=== PATIENT | female | born 1995 | race Caucasian/White ===

== ENCOUNTER 2020-08-21 10:00 | Outpatient (RCR) | payer OTHER, MEDICARE, SELFPAY ==
[2020-08-21 12:31] VITALS: BMI 28.3
--- NOTE | 2020-08-21 12:53 | PC.ADMIT ---
Patient self referred to the PHP program d/t increase in depression with passive SI and severe anxiety. Reports panic attacks 3 times a week and feels triggered by everything. Per [facility] assessment patient was hospitalized in February 2020 and had a medication wash . Patient reports hx of attending other [facility] programs and reports not having a good experience. Patient reports break up with boyfriend contributing to her symptoms. Patient presents with depressed mood and affect. Reports passive Si, no plan or intent. Gave verbal permission to email her a copy of her safety plan. Asked patient if feeling unsafe who could she contact and she stated her mom whom she lives with or her friends. Patient has the crisis number if needed. Medications reconciled with patient and patient's pharmacy. Unclear why she was prescribed Vitamin B1 and Folic Acid, pt reports she has not been taking this medication.
--- NOTE | 2020-08-21 12:56 | PC.NURSE ---
Patient emailed staff stating she is struggling and needs to withdraw from the program. I called patient to f/u. Patient stated while in group she started getting flashbacks from anouther [facility] program she was in and felt overwhelmed. She stated nothing happened in the program groups however it is reminding her of the bad experience she had at another [facility]. Patient reports she is safe, no plan or intent to kill herself. Reports her mother is home and she let her mother know she will not be continuing the program. Patient also reports she reached out to her therapist to let her know and will be seeing her therapist 2-3 times a week moving forward.
== END 2020-08-22 09:31 | disposition home or self-care (01) ==
LOC: HO.PHPA 10:00
PROVIDERS: Visit Provider Psychiatry & Neurology Psychiatry
DX: F33.2 Major depressive disorder, recurrent severe without psychotic features (principal); F41.1 Generalized anxiety disorder
CPT/HCPCS: 90791; 90853